=== PATIENT | male | born 1945 | race Caucasian/White ===

== ENCOUNTER 2016-10-27 10:55 | Day surgery (SDC) | payer MEDICARE ==
[~2016-10-27] VITALS: Ht 167.6 cm; Wt 77.1 kg
[~2016-10-27 10:55] MED LIST: ADVIL200 M1; AMARYL 4MG. TAB4 MG PO; AMOXICILLIN 50500 MG PO; ATIVAN1 M1 PO; BACTRIM DS 8001 TAB PO; CYMBALTA60 MG PO; FLOMAX 0.4MG C0.4 MG PO; GEMFIBROZIL600 M1 PO; LANTUS INS100 UNITS/ SC; LASIX40 MG PO; MELOXICAM15 MG; METFORMIN1000 MG PO; METHADONE 10 MG10 MG PO; METOPROLOL25 MG PO; MORPHINE SULFAT30 M3 PO; OXYCODONE HCL15 MG PO; OXYCODONE HYDRO15 MG PO; OXYCODONE SR 2020 MG PO; OXYCONTIN 40MG40 MG; PLAVIX75 M1 PO; POTASSIUM CHLO10 ME3 PO; PREVACID 15 MG15 M1 PO; ST. JOSEPH81 MG PO; SYMBICORT1 AE1 IH; ZOCOR40 MG PO
[2016-10-27 11:05] VITALS: BP 163/85
[2016-10-27] MEDS ORDERED: LIPITOR20 MG PO (11:16)
[2016-10-27 11:38] VITALS: BP 163/85
--- NOTE | 2016-10-27 11:41 | Procedure Note ---
Procedure detail Date of procedure: 10/27/16 Anesthesiologist: Kush rondon CRNA Complications: None Pre-procedure diagnosis: Degenerative osteoporosis bilateral shoulders. Post-procedure diagnosis: Same. Indications for procedure: This patient's pleasant 71-year-old white male that we've been treating her pain clinic for quite some time for several issues. Most recently bilateral shoulder pain that he describes as constant, dull, aching. Patient had orthopedic surgery consultation in was determined no surgery necessary. Patient suffering with degenerative osteoarthritis bilateral shoulder joints. We'll inject him in the past with 3-6 months of improvement terms of his bilateral shoulder pain. Patient presents today for bilateral shoulder intra-articular injections. Procedure detail: Details of procedure were expected to the patient. The patient taken to the procedure room where noninvasive monitors were placed including noninvasive blood pressure cuff as well as pulse oximeter. The area over the posterior shoulder joints bilaterally was cleansed using chlorhexidine as a cleansing solution. Using a posterior approach the RIGHT shoulder joint was accessed with ease using 22-gauge needle. 2 mL of 0.25 percent Marcaine +2 mL of 1 percent lidocaine and 49-year-old of Depo-Medrol were injected. The same procedure was carried out on the LEFT shoulder. Patient tolerated the procedure without difficulty. There were no complications. Plan and disposition: Patient was reevaluated 10 minutes post procedure. Patient reports 90 percent improved terms of his bilateral shoulder pain. He'll return to the pain clinic to follow up with us for further evaluation. at [id number]
[2016-10-27 11:53] VITALS: BP 178/93
[2016-11-16] MEDS ORDERED: OXYCODONE HYDRO15 MG PO ×2 (09:18→09:19)
== END 2016-10-27 11:53 | disposition home or self-care (01) ==
LOC: PM 10:55
PROC: 3E0U3BZ Introduction of Anesthetic Agent into Joints, Percutaneous Approach (ICD-10-PCS; principal; 2016-10-27)
PROC: 3E0U33Z Introduction of Anti-inflammatory into Joints, Percutaneous Approach (ICD-10-PCS; 2016-10-27)
DX: M19.012 Primary osteoarthritis, left shoulder (principal); M19.011 Primary osteoarthritis, right shoulder; Z79.899 Other long term (current) drug therapy
CPT/HCPCS: J1030